=== PATIENT | female | born 1995 | race Caucasian/White ===

== ENCOUNTER 2018-10-31 19:24 | Emergency (ER) | payer BC ==
[2018-10-31 19:43] VITALS: BP 138/91; PULSE 77; RESP 16; TEMP 98.3
[2018-10-31] MEDS ORDERED: DIAZEPAM 5 MG TAB PO STA (19:51)
[2018-10-31] MEDS ORDERED: KETOROLAC 30 MG/ML 1 ML VIAL IM STA (19:52)
--- NOTE | 2018-10-31 20:00 | ED ---
General Adult HPI - General Chief complaint: Neck Pain/Injury Stated complaint: Muscle pain in neck through shoulder Time Seen by Provider: 10/31/18 19:44 Source: patient Mode of arrival: ambulatory Limitations: no limitations - History of Present Illness Initial comments: 23-year-old female with no past medical history presenting today for chief complaint of left-sided neck tension. 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 Patient states that she woke up this morning with stiff sensation left neck that increases rotation towards the left side as well as rotation to the opposite side. Patient denies any numbness tingling loss sensation, injury to the left shoulder or neck. Recent falls. Patient denies any previous injuries. Patient denies any erythema, warmth or decreased range of motion of the left shoulder. Remainder ROS negative, patient denies any recent fever, chills, night sweats shortness of breath, chest pain, back pain, abdominal pain, nausea or vomiting, numbness or tingling, dysuria or hematuria, constipation or diarrhea, headaches or visual changes, or any other complaints. On arrival patient appears well. Vital signs within acceptable limits. - Related Data Previous Rx's Medication Instructions Recorded Cyclobenzaprine [Flexeril] 10 mg PO HS PRN 4 Days #4 tab 10/31/18 Ibuprofen 800 mg PO Q8H PRN 7 Days #21 tablet 10/31/18 Allergies Allergy/AdvReac Type Severity Reaction Status Date / Time bee venom protein (honey bee) Allergy Swelling Verified 10/31/18 19:43 Review of Systems ROS Statement: Those systems with pertinent positive or pertinent negative responses have been documented in the HPI. ROS Other: All systems not noted in ROS Statement are negative. Past Medical History Past Medical History: No Reported History History of Any Multi-Drug Resistant Organisms: None Reported Past Surgical History: No Surgical Hx Reported Past Psychological History: Anxiety, Depression Smoking Status: Never smoker Past Alcohol Use History: None Reported Past Drug Use History: Marijuana General Exam - General Exam Comments Initial Comments: General: The patient is awake and alert, in no distress, and does not appear acutely ill. Eye: Pupils are equal, round and reactive to light, extra-ocular movements are intact. No nystagmus. There is normal conjunctiva bilaterally. No signs of icterus. Ears, nose, mouth and throat: There are moist mucous membranes and no oral lesions. Cardiovascular: There is a regular rate and rhythm. No murmur, rub or gallop is appreciated. Respiratory: Lungs are clear to auscultation, respirations are non-labored, breath sounds are equal. No wheezes, stridor, rales, or rhonchi. Musculoskeletal: Normal inspection the shoulders bilaterally. Patient is tender to palpation over the LEFT TRAPEZIUS MUSCLE. PATIENT HAS INCREASED PAIN WITH ROTATION TOWARDS THE LEFT SIDE WELL rotation. Muscle tension and spasm. No midline tenderness to palpation of the cervical spine. Normal ROM of the upper extremities equal bilaterally, she does admit to tenderness in the left side the neck with range of motion of the left shoulder. Strength 5/5 of the UE. Sensation intact of the UE b/l. Radial pulses equal bilaterally 2+. Patient able to make the okay fingers crossed thumbs-up b/l ulnar, median and radial nerve intact.Compartments soft and compressible. Neurological: A&O x 3. CN II-XII intact, There are no obvious motor or sensory deficits. Coordination appears grossly intact. Speech is normal. Skin: Skin is warm and dry and no rashes or lesions are noted. Psychiatric: Cooperative, appropriate mood & affect, normal judgment. Limitations: no limitations Course Vital Signs 10/31/18 19:39 Temperature 98.3 F Pulse Rate 77 Respiratory 16 Rate Blood Pressure 138/91 O2 Sat by Pulse 99 Oximetry Medical Decision Making - Medical Decision Making 23-year-old atraumatic left shoulder pain. Patient uses left upper extremity repetitive motion at work. Normal inspection. No erythema. Patient denies a fever, chills. There is no swelling noted of the shoulder. Patient states is more tension and swelling upon questioning of triage note. She neurovascular intact. Muscle tension on exam. Patient has increased pain with range of motion at the C-spine. No midline tenderness. All tenderness over the trapezius muscle. Patient given Valium and Toradol. Patient placed in sling for comfort. At this time I do feel patient is stable for discharge with primary care f/u in next 1-2 days. Temperatures were discussed with patient who verbalized understanding. Patient discharged in stable condition appearing well. This case with attending provider Dr. Dunn prior to discharge. Disposition Clinical Impression: Neck muscle strain Disposition: HOME SELF-CARE Condition: Good Instructions (If sedation given, give patient instructions): Cervical Strain ( ED) Additional Instructions: Please use medication as discussed, or operating machinery, consuming alcohol, driving, taking opioids or benzodiazepines with Flexeril as discussed. Please follow-up with family doctor in the next 2 days. Please return to emergency room if the symptoms increase or worsen or for any other concerns. Use sling as needed for comfort. Prescriptions: Cyclobenzaprine [Flexeril] 10 mg PO HS PRN 4 Days #4 tab PRN Reason: Muscle Spasm Ibuprofen 800 mg PO Q8H PRN 7 Days #21 tablet PRN Reason: Pain Is patient prescribed a controlled substance at d/c from ED?: No Referrals: None,Stated [Primary Care Provider] - 1-2 days [facility] [NON-STAFF] - 1-2 days Time of Disposition: 20:00
== END 2018-10-31 20:27 | disposition home or self-care (01) ==
LOC: EC 19:24
DX: S16.1XXA Strain of muscle, fascia and tendon at neck level, initial encounter (principal); R29.6 Repeated falls; Z91.030 Bee allergy status
CPT/HCPCS: 99283; 96372; L3670; J1885

== ENCOUNTER 2023-11-10 15:59 | Emergency (ER) | payer BC, OTHER ==
--- NOTE | 2023-11-10 16:24 | ED ---
General Adult HPI - General Chief complaint: Vaginal Bleeding Stated complaint: 14 weeks pg vaginal bleeding Time Seen by Provider: 11/10/23 16:08 Source: patient, RN notes reviewed Mode of arrival: ambulatory Limitations: no limitations - History of Present Illness Initial comments: 28-year-old G3, P2 female presents to the emergency department for evaluation of vaginal bleeding and lower abdominal cramping in . Patient states that this started around 30 minutes ago. She is around 14 weeks . Last menstrual period 08-02-2023. Patient reports that she has had 2 prior healthy pregnancies without any complications. She denies any significant past medical history. Patient has had an ultrasound at the [facility] about 1 month ago and states that everything looked good at that time. She has not followed up with her OB yet. She states that she has an appointment on 11-21-2023. This appointment is with Dr. Doran in [facility]. - Related Data Previous Rx's Medication Instructions Recorded Cyclobenzaprine [Flexeril] 10 mg PO HS PRN 4 Days #4 tab 10/31/18 Ibuprofen 800 mg PO Q8H PRN 7 Days #21 tablet 10/31/18 Allergies Allergy/AdvReac Type Severity Reaction Status Date / Time bee venom protein (honey bee) Allergy Swelling Verified 10/31/18 19:43 metoclopramide [From Reglan] Allergy Anaphylaxis Verified 11/10/23 16:05 Review of Systems ROS Statement: Those systems with pertinent positive or pertinent negative responses have been documented in the HPI. ROS Other: All systems not noted in ROS Statement are negative. Past Medical History Past Medical History: No Reported History History of Any Multi-Drug Resistant Organisms: None Reported Past Surgical History: No Surgical Hx Reported Past Psychological History: Anxiety, Depression Smoking Status: Former smoker Past Alcohol Use History: Rare Past Drug Use History: Marijuana General Exam Limitations: no limitations General appearance: alert, in no apparent distress Head exam: Present: atraumatic, normocephalic, normal inspection Eye exam: Present: normal appearance, PERRL, EOMI. Absent: scleral icterus, conjunctival injection, periorbital swelling ENT exam: Present: normal exam, mucous membranes moist Respiratory exam: Present: normal lung sounds bilaterally. Absent: respiratory distress, wheezes, rales, rhonchi, stridor Cardiovascular Exam: Present: regular rate, normal rhythm, normal heart sounds. Absent: systolic murmur, diastolic murmur, rubs, gallop, clicks GI/Abdominal exam: Present: soft, normal bowel sounds. Absent: distended, tenderness, guarding, rebound, rigid Extremities exam: Present: normal inspection, full ROM, normal capillary refill. Absent: tenderness, pedal edema, joint swelling, calf tenderness Back exam: Present: normal inspection Neurological exam: Present: alert, oriented X3 Psychiatric exam: Present: normal affect, normal mood Skin exam: Present: warm, dry, intact, normal color. Absent: rash Course Vital Signs 11/10/23 11/10/23 11/10/23 16:02 18:36 18:48 Temperature 98.7 F Pulse Rate 90 115 H 87 Respiratory 18 18 18 Rate Blood Pressure 146/66 122/89 124/82 O2 Sat by Pulse 100 90 L 98 Oximetry Medical Decision Making - Medical Decision Making Was pt. sent in by a medical professional or institution (, PA, CRISIS INTERVENTION SPECIALIST, urgent care, hospital, or retirement...) When possible be specific @ -No Did you speak to anyone other than the patient for history (EMS, parent, family, police, friend...)? What history was obtained from this source @ -No Did you review nursing and triage notes (agree or disagree)? Why? @ -I reviewed and agree with nursing and triage notes Were old charts reviewed (outside hosp., previous admission, EMS record, old EKG, old radiological studies, urgent care reports/EKG's, retirement records)? Report findings @ -No old charts were reviewed Differential Diagnosis (chest pain, altered mental status, abdominal pain women, abdominal pain men, vaginal bleeding, weakness, fever, dyspnea, syncope, headache, dizziness, GI bleed, back pain, seizure, CVA, palpatations, mental health, musculoskeletal)? @ -Differential Vaginal Bleeding: Spontaneous , threatened , molar , ectopic , bloody show, incompetent cervix, abruptioplacenta, placenta previa, uterine rupture, dysfunctional uterine bleeding, hemorrhage, uterine fibroids, this is not meant to be an all-inclusive list. EKG interpreted by me (3pts min.). @ -None X-rays interpreted by me (1pt min.). @ -None done CT interpreted by me (1pt min.). @ -None done U/S interpreted by me (1pt. min.). @ - ultrasound obtained shows low-lying placenta previa, single live intrauterine heart rate of 163 What testing was considered but not performed or refused? (CT, X-rays, U/S, labs)? Why? @ -None What meds were considered but not given or refused? Why? @ -None Did you discuss the management of the patient with other professionals (devin mcclellan i.eAzeb Roque, PA, CRISIS INTERVENTION SPECIALIST, lab, RT, psych nurse, social psychologist, wet inspector optical glass, teacher, production officer, pillowcase folder)? Give summary @ -No Was smoking cessation discussed for >3mins.? @ -No Was critical care preformed (if so, how long)? @ -No Were there social determinants of health that impacted care today? How? (Homelessness, low income, unemployed, alcoholism, drug addiction, transportation, low edu. Level, literacy, decrease access to med. care, assisted, rehab)? @ -No Was there de-escalation of care discussed even if they declined (Discuss DNR or withdrawal of care, Hospice)? DNR status @ -No What co-morbidities impacted this encounter? (DM, HTN, Smoking, COPD, CAD, Cancer, CVA, ARF, Chemo, Hep., AIDS, mental health diagnosis, sleep apnea, morbid obesity)? @ -None Was patient admitted / discharged? Hospital course, mention meds given and route, prescriptions, significant lab abnormalities, going to OR and other pertinent info. @ -Discharged. Presented to the emergency department for evaluation of vaginal bleeding in x 1 hour. Laboratory studies obtained. CBC shows WBC 11.1 likely reactive to , hemoglobin 13.6; normal coagulation studies; CMP essentially unremarkable. Quantitative hCG 31,867. UA shows large blood, small leukocyte esterase. O+ blood type and not requiring RhoGAM. Ultrasound of the fetus obtained which shows a single live intrauterine with a low-lying placenta previa. 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 Patient understanding agreeable with plan. Patient stable at time of discharge. Case discussed with Dr. Park Undiagnosed new problem with uncertain prognosis? @ -No Drug Therapy requiring intensive monitoring for toxicity (Heparin, Nitro, Insulin, Cardizem)? @ -No Were any procedures done? @ -No Diagnosis/symptom? @ -Vaginal bleeding Acute, or Chronic, or Acute on Chronic? @ -Acute Uncomplicated (without systemic symptoms) or Complicated (systemic symptoms)? @ -Uncomplicated Side effects of treatment? @ -No Exacerbation, Progression, or Severe Exacerbation? @ -No Poses a threat to life or bodily function? How? (Chest pain, [place], [place], pneumonia, PE, COPD, DKA, ARF, appy, cholecystitis, CVA, Diverticulitis, Homicidal, Suicidal, threat to staff... and all critical care pts) @ -No - Lab Data Result diagrams: 11/10/23 16:25 11/10/23 16:25 Lab Results 11/10/23 11/10/23 11/10/23 Range/Units 16:07 16:25 16:25 WBC 11.1 H (3.8-10.6) k/uL RBC 4.68 (3.80-5.40) m/uL Hgb 13.6 (11.4-16.0) gm/dL Hct 39.3 (34.0-46.0) % MCV 83.9 (80.0-100.0) fL MCH 29.0 (25.0-35.0) pg MCHC 34.5 (31.0-37.0) g/dL RDW 14.3 (11.5-15.5) % Plt Count 289 (150-450) k/uL MPV 7.8 Neutrophils % 65 % Lymphocytes % 21 % Monocytes % 4 % Eosinophils % 8 % Basophils % 0 % Neutrophils # 7.2 (1.3-7.7) k/uL Lymphocytes # 2.4 (1.0-4.8) k/uL Monocytes # 0.4 (0-1.0) k/uL Eosinophils # 0.9 H (0-0.7) k/uL Basophils # 0.1 (0-0.2) k/uL PT 10.2 (10.0-12.5) sec INR 0.9 (<1.2) APTT 25.6 (22.0-30.0) sec Sodium (137-145) mmol/L Potassium (3.5-5.1) mmol/L Chloride (98-107) mmol/L Carbon Dioxide (22-30) mmol/L Anion Gap mmol/L BUN (7-17) mg/dL Creatinine (0.52-1.04) mg/dL Est GFR (CKD-EPI)AfAm (>60 ml/min/1.73 sqM) Est GFR (CKD-EPI)NonAf (>60 ml/min/1.73 sqM) Glucose (74-99) mg/dL Calcium (8.4-10.2) mg/dL Total Bilirubin (0.2-1.3) mg/dL AST (14-36) U/L ALT (4-34) U/L Alkaline Phosphatase (38-126) U/L Total Protein (6.3-8.2) g/dL Albumin (3.5-5.0) g/dL HCG, Quant mIU/mL Urine Color Colorless Urine Appearance Clear (Clear) Urine pH 5.5 (5.0-8.0) Ur Specific [place] 1.012 (1.001-1.035) Urine Protein Negative (Negative) Urine Glucose (UA) Negative (Negative) Urine Ketones Negative (Negative) Urine Blood Large H (Negative) Urine Nitrite Negative (Negative) Urine Bilirubin Negative (Negative) Urine Urobilinogen <2.0 (<2.0) mg/dL Ur Leukocyte Esterase Small H (Negative) Urine RBC 2 (0-5) /hpf Urine WBC 3 (0-5) /hpf Ur Squamous Epith Cells 3 (0-4) /hpf Urine Bacteria Rare H (None) /hpf Urine Mucus Rare H (None) /hpf Blood Type Blood Type Recheck Bld Type Recheck Status 11/10/23 11/10/23 Range/Units 16:25 16:25 WBC (3.8-10.6) k/uL RBC (3.80-5.40) m/uL Hgb (11.4-16.0) gm/dL Hct (34.0-46.0) % MCV (80.0-100.0) fL MCH (25.0-35.0) pg MCHC (31.0-37.0) g/dL RDW (11.5-15.5) % Plt Count (150-450) k/uL MPV Neutrophils % % Lymphocytes % % Monocytes % % Eosinophils % % Basophils % % Neutrophils # (1.3-7.7) k/uL Lymphocytes # (1.0-4.8) k/uL Monocytes # (0-1.0) k/uL Eosinophils # (0-0.7) k/uL Basophils # (0-0.2) k/uL PT (10.0-12.5) sec INR (<1.2) APTT (22.0-30.0) sec Sodium 136 L (137-145) mmol/L Potassium 3.8 (3.5-5.1) mmol/L Chloride 107 (98-107) mmol/L Carbon Dioxide 20 L (22-30) mmol/L Anion Gap 9 mmol/L BUN 8 (7-17) mg/dL Creatinine 0.60 (0.52-1.04) mg/dL Est GFR (CKD-EPI)AfAm >90 (>60 ml/min/1.73 sqM) Est GFR (CKD-EPI)NonAf >90 (>60 ml/min/1.73 sqM) Glucose 97 (74-99) mg/dL Calcium 9.9 (8.4-10.2) mg/dL Total Bilirubin 0.3 (0.2-1.3) mg/dL AST 16 (14-36) U/L ALT 13 (4-34) U/L Alkaline Phosphatase 78 (38-126) U/L Total Protein 6.7 (6.3-8.2) g/dL Albumin 3.8 (3.5-5.0) g/dL HCG, Quant 81322.3 mIU/mL Urine Color Urine Appearance (Clear) Urine pH (5.0-8.0) Ur Specific [place] (1.001-1.035) Urine Protein (Negative) Urine Glucose (UA) (Negative) Urine Ketones (Negative) Urine Blood (Negative) Urine Nitrite (Negative) Urine Bilirubin (Negative) Urine Urobilinogen (<2.0) mg/dL Ur Leukocyte Esterase (Negative) Urine RBC (0-5) /hpf Urine WBC (0-5) /hpf Ur Squamous Epith Cells (0-4) /hpf Urine Bacteria (None) /hpf Urine Mucus (None) /hpf Blood Type O Positive Blood Type Recheck No Previous Record Bld Type Recheck Status [facility] ONLY Disposition Clinical Impression: Threatened miscarriage Disposition: HOME SELF-CARE Condition: Stable Instructions (If sedation given, give patient instructions): Threatened Miscarriage (ED), Placenta Previa (ED) Additional Instructions: Please follow up with your PEER COUNSELOR. Return to the emergency department for new or worsening symptoms. Is patient prescribed a controlled substance at d/c from ED?: No Referrals: Bhavana Fernández MD [Primary Care Provider] - 1-2 days
[2023-11-10 16:37] LABS: Appearance,Urine Clear (Clear); Bacteria,Urine Rare /hpf; Bilirubin,Urine Negative (Negative); Blood,Urine Large (Negative); Color,Urine Colorless; Glucose,Urine (UA) Negative (Negative); Ketones,Urine Negative (Negative); Leukocyte Esterase,Urine Small (Negative); Mucus,Urine Rare /hpf; Nitrite,Urine Negative (Negative); PH, Urine 5.5 (5.0-8.0); Protein,Urine Negative (Negative); RBC,Urine 2 /hpf (0-5); Specific Gravity,Urine 1.012 (1.001-1.035); Squamous Epithelial Cell,Urine 3 /hpf (0-4); Urobilinogen,Urine <2.0 mg/dL (<2.0); WBC,Urine 3 /hpf (0-5)
[2023-11-10 16:57] VITALS: RESP 18; TEMP 98.7
[2023-11-10 16:59] LABS: Basophils # (A) 0.1 k/uL (0-0.2); Basophils % (A) 0 %; Eosinophils # (A) 0.9 k/uL (0-0.7); Eosinophils % (A) 8 %; HCT 39.3 % (34.0-46.0); HGB 13.6 gm/dL (11.4-16.0); Lymphocytes # (A) 2.4 k/uL (1.0-4.8); Lymphocytes % (A) 21 %; MCHC 34.5 g/dL (31.0-37.0); MCV 83.9 fL (80.0-100.0); Mean Platelet Volume 7.8; Monocytes # (A) 0.4 k/uL (0-1.0); Monocytes % (A) 4 %; Neutrophils # (A) 7.2 k/uL (1.3-7.7); Neutrophils % (A) 65 %; Platelet Count 289 k/uL (150-450); RBC 4.68 m/uL (3.80-5.40); RDW 14.3 % (11.5-15.5); WBC 11.1 k/uL (3.8-10.6)
[2023-11-10 17:19] LABS: INR 0.9 (<1.2); Partial Thromboplastin Time 25.6 sec (22.0-30.0); Prothrombin Time 10.2 sec (10.0-12.5)
[2023-11-10 17:29] LABS: ALT 13 U/L (4-34); AST 16 U/L (14-36); African American GFR (CKD) >90 (>60 ml/min/1.73 sqM); Albumin 3.8 g/dL (3.5-5.0); Alkaline Phosphatase 78 U/L (38-126); Anion Gap 9 mmol/L; Blood Urea Nitrogen 8 mg/dL (7-17); Calcium 9.9 mg/dL (8.4-10.2); Carbon Dioxide 20 mmol/L (22-30); Chloride 107 mmol/L (98-107); Glucose 97 mg/dL (74-99); Non-African American GFR(CKD) >90 (>60 ml/min/1.73 sqM); Potassium 3.8 mmol/L (3.5-5.1); Sodium 136 mmol/L (137-145); Total Bilirubin 0.3 mg/dL (0.2-1.3); Total Protein 6.7 g/dL (6.3-8.2)
--- NOTE | 2023-11-10 17:40 | US ---
EXAMINATION TYPE: US OB >= 14 wk fetus DATE OF EXAM: 11/10/2023 COMPARISON: None CLINICAL INDICATION: Female, 28 years old with history of bleeding, crampign; bleeding started today TECHNIQUE: Transabdominal (TA) GESTATIONAL AGE / DATING Physician Established: Not yet established Dates by LMP: (14 weeks/2 days) EDC: 05/08/2024 Dates by First Scan: No previous this is first scan Dates by Current Scan: (15 weeks/1 days) EDC: 05/02/2024 Beta HCG (if available): Not available at this time SURVEY IUP: Single PLACENTA: Posterior PREVIA: Low Lying SOO: 11 cm Normal CERVICAL LENGTH (transabdominal: norm > 3.0cm): 3.7 cm BIOMETRY PRESENTATION: Variable LIE: Longitudinal BPD: 2.92 cm 15 weeks / 2 days HC: 10.36 cm 14 weeks / 6 days AC: 8.87 cm 15 weeks / 1 days FL: 1.37 cm 14 weeks / 0 days ESTIMATED WEIGHT IN GRAMS: 102.22 grams ESTIMATED WEIGHT IN LBS/OZ: 0 lbs. 4 oz. WEIGHT PERCENTAGE BASED ON ESTABLISHED DATES: 59.1% HC/AC: 1.17cm Normal FL/AC: 15.45 Normal HEART RATE: 163 bpm RHYTHM: Normal IMPRESSION: 1. Single viable intrauterine as described above. 2. This is a limited exam not performed for evaluation of the anatomy or potential anomal ies.
[2023-11-10 18:14] LABS: HCG,Quantitative Serum 31867.3 mIU/mL
[2023-11-10 19:08] VITALS: BP 124/82; PULSE 87
== END 2023-11-10 18:50 | disposition home or self-care (01) ==
LOC: EC 15:59
DX: O20.0 Threatened abortion (principal); O99.322 Drug use complicating pregnancy, second trimester; F12.90 Cannabis use, unspecified, uncomplicated; Z86.59 Personal history of other mental and behavioral disorders; Z87.891 Personal history of nicotine dependence; Z91.030 Bee allergy status; Z88.8 Allergy status to other drugs, medicaments and biological substances; Z3A.14 14 weeks gestation of pregnancy
CPT/HCPCS: 36415; 76805; 80053; 81001; 84702; 85025; 85610; 85730; 86900; 86901; 99284

== ENCOUNTER → 2024-04-03 | Outpatient (CLI) | payer OTHER ==
--- NOTE | 2024-04-03 18:43 | US ---
EXAMINATION TYPE: US OB >= 14 wk fetus DATE OF EXAM: 04/03/2024 COMPARISON: OB ultrasound 11/10/2023 CLINICAL INDICATION: Female, 29 years old with history of Z34.80 SCREENING FOR NORMAL , UNSP ; . TECHNIQUE: Transabdominal (TA) EXAM MEASUREMENTS: GESTATIONAL AGE / DATING Physician Established: ( 34 weeks/6 days) EDC: 05/09/2024 Dates by LMP: (35 weeks/0 days) EDC: 05/08/2024 Dates by First Scan: (35 weeks/6 days) EDC: 05/02/2024 Dates by Current Scan for: (34 weeks/3 days) EDC: 05/12/2024 SURVEY IUP: Single PLACENTA: Fundal- Posterior PREVIA: No previa seen SOO: 13.0 cm Normal CERVICAL LENGTH (transabdominal: norm > 3.0cm): 3.8 cm BIOMETRY PRESENTATION: Vertex BPD: 8.5 cm 34 weeks / 2 days HC: 30.8 cm 34 weeks / 3 days AC: 30.5 cm 34 weeks / 4 days FL: 6.6 cm 34 weeks / 0 days ESTIMATED WEIGHT IN GRAMS: 2396 grams ESTIMATED WEIGHT IN LBS/OZ: 5 lbs. 5 oz. WEIGHT PERCENTAGE BASED ON ESTABLISHED DATE: 30 % HC/AC: 1.01 Normal FL/AC: 22% Normal HEART RATE: 133 bpm RHYTHM: Normal ANATOMY SEEN (within normal limits): Four Chamber Heart Outflow tracts: LVOT Stomach Situs Diaphragm Kidneys (bilateral) Bladder Three Vessel Cord Legs (bilateral) ANATOMY NOT SEEN: due to age. Longitudinal Spine Transverse Spine Arms (bilateral) Nose / Lips RVOT * Lateral Vent * Cisterna Magna * Nuchal Fold * Cerebellum (varies with age) Choroid Plexus (bilateral) Midline Falx Cavus Septi Pellucidi Cord Insert Consider follow-up ultrasound to assess for anatomy not visualized on today's exam due to gestational age. IMPRESSION: Single live intrauterine gestation with estimated gestational age of 34 weeks 3 days with estimated d ue date of 05/12/2024.
== END | disposition home or self-care (01) ==
LOC: RADUSWWP 15:35
PROVIDERS: ATTEND Obstetrics & Gynecology
DX: Z34.80 Encounter for supervision of other normal pregnancy, unspecified trimester (principal); Z3A.34 34 weeks gestation of pregnancy
CPT/HCPCS: 76805